=== PATIENT | male | born 1985 | race Caucasian/White ===

== ENCOUNTER 2017-03-01 22:24 | Emergency (ER) | payer BC ==
[2017-03-01 22:36] VITALS: BP 126/100
--- NOTE | 2017-03-01 23:06 | ERNOTE ---
Upper Extremity HPI - Narrative Date of Service: 03/01/17 - General Extremities Pain Location: other: left - Trapezius Time Seen by Provider: 03/01/17 22:44 Source: patient Exam Limitations: no limitations - Immun/Allergies/Home Medications Immunizations: IMMUNIZATION HX Immunizations Up to Date Yes History of Influenza Vaccine No Hx Pneumococcal Vaccination No Allergies/Adverse Reactions: Allergies Allergy/AdvReac Type Severity Reaction Status Date / Time No Known Allergies Allergy Verified 03/01/17 22:35 Home Medications: HOME MEDICATIONS clonazePAM [Klonopin] 1 mg PO HS 03/05/15 [Last Taken 02/26/15] Cyclobenzaprine HCl [Flexeril] 10 mg PO TID PRN #20 tablet 03/01/17 [Last Taken Unknown] Lidocaine [Lidoderm 5%] 1 patch TP DAILY PRN #15 patch 03/01/17 [Last Taken Unknown] Naproxen [Naprosyn] 500 mg PO BID PRN #20 tablet 03/01/17 [Last Taken Unknown] Sertraline HCl [Zoloft] 100 mg PO DAILY 03/01/17 [Last Taken Unknown] - History of Present Illness Narrative: 31 year old that has been having left trapezius area pain for about one month. He does not recall an injury. Notes that he usually has pain after carrying a package in the left arm or other activities. Denies any left shoulder joint pain , numbness/tingling or weakness. Denies any neck pain or chest pain. Took Alleve at 2000 hours. He is scheduled to see ortho next week Saturday. Date (Duration): 03/01/17 Time (Timing): 22:52 Occurred: other Severity: moderate Method of Injury: Reports: other - unknown Modifying Factors - (Improves): Reports: other Modifying Factors - (Worsens): Reports: other - carrying packages in the left arm. Associated Symptoms: Denies: tingling, weakness, numbness distally, loss of feeling Other Injuries: Reports: none Review of Systems - Review of Systems Constitutional: Present: no symptoms reported EYE: Present: no symptoms reported ENT: Present: no symptoms reported Respiratory: Present: no symptoms reported Cardiology: Present: no symptoms reported Gastrointestinal/Abdominal: Present: no symptoms reported Genitourinary: Present: no symptoms reported Musculoskeletal: Present: See HPI Neurological: Present: no symptoms reported Endocrine: Present: no symptoms reported Hematologic/Lymphatic: Present: no symptoms reported Psych: Present: no symptoms reported - Patient's Past Medical History Patient History - Medical: No pertinent hx Patient History - Cardiac/Respiratory: No pertinent hx Patient History - Cancer: No Hx of Cancer Patient History - Surgical Procedures: T & A Patient History - Other: None - Social History Living Situations: home Abuse History: No History of abuse Psych History: Hx of Anxiety Do you dip or chew tobacco: Yes Alcohol Use: rarely - Immunizations Immunizations Up to Date: Yes Hx Pneumococcal Vaccination: No History of Influenza Vaccine: No Physical Exam - Physical Exam General Appearance: Present: no apparent distress Head Exam: Present: normal inspection Eye Exam: Normal inspection: bilateral Ears, Nose, Throat: Present: normal ENT inspection Neck: Present: normal inspection Respiratory: Present: no respiratory distress Cardiovascular/Chest: Present: regular rate, rhythm Gastrointestinal/Abdominal: Present: nondistended Back Exam: Present: normal inspection Extremity Exam: Present: other - left trapezius is in spasm as well as the Levator scapulae. No shoulder joint tenderness or loss of range of motion. Neurological Exam: Present: alert, oriented Skin Exam: Present: normal color ED Progress - Vital Signs Patient's Vital Signs:: I have reviewed the patient's vital signs. Vital Signs: Vital Signs 03/01/17 22:30 Temperature 36.4 C L Pulse Rate 86 Respiratory 20 Rate Blood Pressure 126/100 O2 Sat by Pulse 98 Oximetry - Progress/Reassessment Chief Complaint: Shoulder Injury/Pain Progress:: Improved Progress Note-Subjective: 03/01/17 22:58 Given Tylenol one gram PO and Lidoderm patch. Departure Clinical Impression: Muscle spasm - Departure Disposition: Home self-care Condition: Fair Instructions: Muscle Cramps and Spasms Print Language: Divehi Additional Instructions: Try using heat packs or hot water on the area of pain. Follow up with ortho as scheduled. Referrals: Antonio Alvarez DO [Primary Care Provider] - Prescriptions: Cyclobenzaprine HCl [Flexeril] 10 mg PO TID PRN #20 tablet PRN Reason: Muscle Spasm Lidocaine [Lidoderm 5%] 1 patch TP DAILY PRN #15 patch PRN Reason: Pain Naproxen [Naprosyn] 500 mg PO BID PRN #20 tablet PRN Reason: Pain
[2017-03-01] MEDS ORDERED: LIDOCAINE 1 PATCH ADH..PATCH TP SCH (23:15)
== END 2017-03-01 23:15 | disposition home or self-care (01) ==
LOC: ER 22:24
DX: M62.838 Other muscle spasm (principal)